=== PATIENT | female | born 1945 | race Caucasian/White ===

== ENCOUNTER → 2018-06-08 | Outpatient (CLI) | payer MEDICARE, OTHER ==
[2018-06-08 13:54] VITALS: BP 152/80; PULSE 96; RESP 18
--- NOTE | 2018-06-08 21:20 | P.PAINCN ---
History of Present Illness - Reason for Consult Consult date: 06/08/18 - History of Present Illness This is the initial consultation visit for this 72 years old female with a chronic history of severe left sided low back pain localized towards the left buttock area, she denies any initiating event and she reported that the pain started 2- 3 years ago, she was diagnosed with left sacroiliitis, she had some benefit from the left sacroiliac joint steroid injection, and the benefit lasted only for 2-3 months after each injection, she denies any motor or sensory deficit she denies any change in the bowel movement or urination, she is able to ambulate, she reported that the intensity of the pain fluctuates between a 3/10 and increases with any activity to 7-8/10, the intensity of the pain interfering with her quality of life Past Medical History Past Medical History: No Reported History History of Any Multi-Drug Resistant Organisms: None Reported Additional Past Surgical History / Comment(s): LAPAROTOMY-CYST NEAR OVARY Past Anesthesia/Blood Transfusion Reactions: No Reported Reaction Past Psychological History: No Psychological Hx Reported Smoking Status: Current every day smoker Past Alcohol Use History: Occasional Additional Past Alcohol Use History / Comment(s): STARTED SMOKING AT AGE 32 SMOKED 1/2PPD Past Drug Use History: None Reported - Past Family History Mother Family Medical History: No Reported History Medications and Allergies Home Medications Medication Instructions Recorded Confirmed Type Aspirin 81 mg PO DAILY 08/20/15 06/08/18 History Cholecalciferol [Vitamin D3] 5,000 unit PO DAILY 08/20/15 06/08/18 History Cyanocobalamin [Vitamin B-12] 1,000 mcg PO DAILY 08/20/15 06/08/18 History Allergies Allergy/AdvReac Type Severity Reaction Status Date / Time nickel Allergy Rash/Hives Verified 06/08/18 13:42 Physical Exam Vitals: Vital Signs Pulse Resp BP Pulse Ox 06/08/18 13:43 96 18 152/80 96 Intake and Output 06/08/18 06/08/18 06/08/18 06:59 14:59 22:59 Other: Weight 51.71 kg Social history : smoker , NO ETOH , NO Illegal drugs use . Review of Systems : - Constitutional : no chills , no fever , no night sweats , - Ears : no ear discharge , no change in hearing -Nose, Mouth ,Throat ; no bleeding gums, no sore throat , no epistaxis , -Cardiovascular : Denies chest pain, , no orthopnea , no palpitation -Respiratory : Denies cough , no dyspnea , no hemoptysis -Gastrointestinal :, no change in bowel habits , no coffee- ground emesis . -Genitourinary : No hematuria , no discharge , no incontinence, -Musculoskeletal : No gait dysfunction , report low back pain , - Neurological : no ataxia , no tremor , no sezure , -Psychatric , no suicidal ideation no hallucination - Endocrine : no cold intolerence , no polyuria , no polydypsia , -Hematologic : no easy bleeding , no easy brusing , -Allergic / immunology : no angioedema , no wheezing ,no allergic rhinitis -Integumentary : no brttle nails , no change hair / nails , no foot/leg ulcers . Physical Examinations : -Constitutional : Cooperative , not in acute distress . -HEENT : nech ; supple , no Lymphadenopathy , no Thyromegaly , :eyes , no icterus, no photophobia . ENT : , normal oropharynx , no Thrush - Respiratory : Chest clear to auscultations Bilaterally , no wheezing . - Cardiovascular : regular rate and rhythem , S1 , S2 , no S3 , no S4. - Gastrointestinal: abdomen soft no tenderness , no organomegally . - Genitourinary : Defferred . -Integumentary : No cellulitis , no ulcers , normal skin turgor , no cyanotic . - neurologic : Cranial nerve II to XII intact , no focal neurological deffecit -psychatric : alert , oriented X 3 , appropriate affect , intact judgment and insight . -Lymphatic : no Lymphadenopathy. - musculoskeltal: normal gait Lumber spine moter stegnth lower extremities ,thigh and legs 5/5 Right side , 5/5 Left side deep tendon reflexes : normal Knee Jerk , normal ankle Jerk lumber facet Loading Test positive on the left side and negative on the right side Range of motion of the lumbar spine Flexion 60 degrees, extension 30 degrees strait leg raising test , positive at degree Fabere test negative bilaterally mild tenderness over the sacroiliac joint on the left side Gaenslen test= negative bilaterally Seated flexion test= negative bilaterally Severe tenderness over the left iliac crest at the location of the left peroneal nerve Results Comments: MRI of the lumbar spine L3 4 foraminal narrowing ,disc bulging and facet arthropathy at L4-L5 and L5-S1 . Assessment and Plan Plan: Assessment and plan=1-left cluneal nerve neuralgia. 2-lumbar spondylosis with lumbar facet arthropathy. 3-left sacroiliitis. Clinically patient had multifactorial causes of low back pain but most of the pain currently is coming from the left cluneal neuralgia She will be good candidate to have left cluneal nerve block 2] possible to RFA of the left cluneal nerve Time with Patient: Greater than 30 PQRS Measure Charge Sheet Measure #130: Documentation of Current Meds in Medical Chart: Patient's medications documented in chart Measure #226: Tobacco Use: Screen & Cessation Intervention: Pt screened for tobacco use AND intervention given Measure #111: Pneumonia Vaccination: Pneumococcal vaccine administered or previously received Measure #47: Advance Care Plan: Advance care planning discussed & documented, pt chose/unable to give Measure #412: Opioid Treatment Agreement: No documentation of signed opioid treatment agreement Measure #408: Opioid Therapy Follow-up Evaluation: Patient had NO f/u eval minimum every 3 months during opioid therapy Measure #317: Preventitive Care & Scrn High Bld Press & F/U: Pre-hypertensive or hypertensive BP documented, pt will f/u with PCP Measure #128: Body Mass Index (BMI) Screening & Follow-up: BMI documented within normal parameters Measure #131: Pain Assessment & Follow-up: Pain positive & plan documented, Follow-up scheduled Measure #431: Unhealthy Alcohol Use Preventative Care & Scrn: Patient not identified as an unhealthy alcohol user PQRS Narrative: Smoking Status Current every day smoker Do You Want the Pneumonia Vaccine Up to Date Vaccine AT THIS TIME? Blood Pressure 152/80 Pain Intensity [Left Lower 7 Back] Scale Used Numeric (1 - 10) Hx Alcohol Use (MH) Yes: social Home Medications: Ambulatory Orders Aspirin 81 mg PO DAILY 08/20/15 Cholecalciferol [Vitamin D3] 5,000 unit PO DAILY 08/20/15 Cyanocobalamin [Vitamin B-12] 1,000 mcg PO DAILY 08/20/15
== END | disposition home or self-care (01) ==
LOC: PNWHC3 13:36
PROVIDERS: ATTEND Specialist
DX: G89.29 Other chronic pain (principal); M47.816 Spondylosis without myelopathy or radiculopathy, lumbar region; M46.1 Sacroiliitis, not elsewhere classified; M46.86 Other specified inflammatory spondylopathies, lumbar region; G58.8 Other specified mononeuropathies; F17.210 Nicotine dependence, cigarettes, uncomplicated; Z79.82 Long term (current) use of aspirin; Z79.899 Other long term (current) drug therapy; Z91.048 Other nonmedicinal substance allergy status; Z71.6 Tobacco abuse counseling
CPT/HCPCS: 99211

== ENCOUNTER 2018-06-22 08:55 | Day surgery (SDC) | payer MEDICARE, OTHER ==
[2018-06-17 14:45] VITALS: BMI 20.3
[~2018-06-22 08:55] MED LIST: LACTATED RINGERS 1,000 ML IV SCH
[2018-06-22 09:19] VITALS: RESP 16; TEMP 97.9
[2018-06-22] MEDS ORDERED: LIDOCAINE 1% 20 ML VIAL (10MG/ML) FOR IV START INTRADERMA ONE (09:25)
[2018-06-22] MEDS ORDERED: IV FLUID CONTINUATION 1,000 ML IV ONE (09:48)
--- NOTE | 2018-06-22 09:50 | P.PCN ---
Date of Procedure: 06/22/18 Procedure(s) Performed: Procedure= left cluneal nerve block with steroid injection under fluoroscopy g uidance Preoperative diagnosis=1- left cluneal nerve neuralgia 2-left sacroiliitis 3-lumbar spondylosis with facet arthropathy Postoperative diagnosis= same as they have diagnoses Complication = none Condition= stable Anesthesia= moderate sedation with intravenous Versed 1 mg , and fentanyl 50 micrograms and local infiltration with lidocaine 1% 5 mL Indication for the procedure= patient complaining of low back pain , examination was positive for severe tenderness over the left iliac crest and over the left sacroiliac joints , and patient diagnosed with left cluneal nerve neuralgia and left sacroiliitis sacroiliitis, for this reason ,she was good candidate for left cluneal nerve steroid injection. Description of the procedure= procedure risk and benefits discussed with the patient, including but not limited, risk of infection and bleeding, and ALLERGIC reaction to the medication and not complete pain relief and patient agreed with the preceding patient taken to the operating room, placed in prone position or standard monitors applied to the patient then after induction of anesthesia back prepped with chlorhexidine 3 times , Then under strict sterile technique, I did the left cluneal nerve block ,the location identified under fluoroscopy guidance been local infiltration of the skin and subcu interstitial with lidocaine 1% then 22-gauge Quincke Needle adv anced slowly under fluoroscopy and placed in the left. Iliac Crest at the location of the left cluneal nerve, placement confirmed with AP view under fluoroscopy ,and after appropriate needle placement confirmed and after negative aspiration, or heme , then Ropivacaine 0.5% 3 mL, and 40 mg of Depo-Medrol mixed together and injected , after negative aspiration patient tolerated the procedure well without any complication.
[2018-06-22 10:11] VITALS: BP 145/84; PULSE 82
--- NOTE | 2018-06-22 10:38 | FL ---
Fluoroscopy HISTORY: Pain 1 seconds fluoroscopy time supplied to the referring clinician. 1 intraoperative C-arm images docume nt the procedure. See dictated report from anesthesia.
== END 2018-06-22 10:29 | disposition home or self-care (01) ==
LOC: ORPAIN 08:55
PROVIDERS: ATTEND Specialist
DX: G58.8 Other specified mononeuropathies (principal); M47.816 Spondylosis without myelopathy or radiculopathy, lumbar region; M46.1 Sacroiliitis, not elsewhere classified; G89.29 Other chronic pain; F17.210 Nicotine dependence, cigarettes, uncomplicated; Z79.82 Long term (current) use of aspirin; Z91.048 Other nonmedicinal substance allergy status
CPT/HCPCS: 64450; J2250; J1030; J3010; 62323; 99152

== ENCOUNTER 2018-07-06 08:51 | Day surgery (SDC) | payer MEDICARE, OTHER ==
[2018-07-02 15:30] VITALS: BMI 20.2
[2018-07-06 09:13] VITALS: TEMP 98.2
--- NOTE | 2018-07-06 09:38 | P.PCN ---
Date of Procedure: 07/06/18 Description of Procedure: Preprocedure diagnosis: Cluneal nerve neuropathy Postprocedure same Procedure performed left cluneal nerve injection Anesthesia: None After consent was taken the preoperative area. All questions are answered. Patient H&P was confirmed. He was taken to procedure room and laid in the prone position. After timeout was called the back was cleansed with chlorhexidine solution. Fluoroscopy was used to get the needle to the left iliac crest. A 25-gauge 1.5 inch needle was placed at the iliac crest. After negative aspiration a solution consisting of ropivacaine 0.5% along with 40 mg of Depo-Medrol was injected in 2-3 mL increments. A total of 10 ML's was placed along the iliac crest on the left side. There is negative aspiration throughout. There is no paresthesias. Follow-up: Patient was sent to the recovery room in stable condition. Patient will be seen in the clinic in 4 weeks' time. We discussed that if the procedure continues to help her for long periods time we'll continue to repeat them as needed. If she has transient relief we will consider doing radiofrequency ablation of the left cluneal nerve.
[2018-07-06 09:43] VITALS: PULSE 66; RESP 16
[2018-07-06 09:52] VITALS: BP 171/86
--- NOTE | 2018-07-06 10:02 | FL ---
EXAMINATION TYPE: FL guided pain mgmt statistic DATE OF EXAM: 07/06/2018 HISTORY: Flouroscopy time 2 seconds of fluoroscopy provided. IMPRESSION: 1. Fluoroscopy time.
== END 2018-07-06 09:59 | disposition home or self-care (01) ==
LOC: ORPAIN 08:51
PROVIDERS: ATTEND Hospitalist
DX: G58.9 Mononeuropathy, unspecified (principal); M47.816 Spondylosis without myelopathy or radiculopathy, lumbar region; M46.1 Sacroiliitis, not elsewhere classified; F17.210 Nicotine dependence, cigarettes, uncomplicated; Z71.6 Tobacco abuse counseling; Z78.0 Asymptomatic menopausal state; Z79.82 Long term (current) use of aspirin; Z79.899 Other long term (current) drug therapy; Z91.048 Other nonmedicinal substance allergy status; Z98.890 Other specified postprocedural states
CPT/HCPCS: 64450; J1030

== ENCOUNTER → 2018-07-20 | Outpatient (CLI) | payer MEDICARE, OTHER ==
[2018-07-20 11:19] VITALS: BP 167/96; PULSE 100; RESP 18
--- NOTE | 2018-07-20 11:34 | P.PN ---
Subjective Progress Note Date: 07/20/18 Megha is a 72-year-old female presents today for follow-up. She is status post 2 left cluneal nerve injections. She reports her pain is significantly better since having the injections. She reports she is able to protect pain her family events over the last week or 2. She was able to play with grandkids. She has some minimal pain over the left side of her low back and some numbness in her buttocks. She reports that the pain is much better than it has been in the past. She still doing well since injection. She is inquiring about what she can do long-term. We discussed the radiofrequency ablation to cluneal nerve as a potential option. At this point she was a VAS is about 2 or 3 out of 10 is pretty comfortable. Denies any side effects from the injection. Denies any new radicular symptoms or new weakness. Objective - Vital Signs Vital signs: Vital Signs Temp Pulse 100 07/20/18 11:14 Resp 18 07/20/18 11:14 BP 167/96 07/20/18 11:14 Pulse Ox 98 07/20/18 11:14 Intake & Output 07/19/18 07/20/18 07/20/18 18:59 06:59 18:59 Weight 51.71 kg - Exam PHYSICAL EXAM: Constitutional: Awake and alert no distress Cardiovascular exam: Regular rate, no lower extremity edema, palpable pulses bilaterally Respiratory exam: No audible wheezing, no accessory muscle usage Abdominal exam: Soft nontender Muscular skeletal exam: - Cervical spine: Nontender to palpation bilaterally. Range of motion is not limited. Spurling is negative bilateral. Facet loading is negative bilaterally - Lumbar spine: Preserved lumbar lordosis. No changes in skin. Nontender palpation bilateral. Patient has full range of motion in flexion and extension as well as lateral sidebending. Straight leg raise is negative. Minimal tenderness over the left iliac crest. Facet loading is negative. Nontender over the SI joints. OSWALDO Negative, Gaenselons negative, SI Joint compression negative. Neuro exam: Normal sensation bilateral upper and lower extremities. Deep tendon reflexes are 2+ bilaterally. Shaffer's is negative Psychiatric exam: Cooperative, good insight Assessment and Plan Assessment: Left cluneal nerve neuropathy Plan: I discussed with her radio frequency ablation of the left cluneal nerve. I've advised her that if she still doing all from the injection we can hold off on doing at this time. She will give us a call to schedule a radiofrequency ablation one her pain begins to come back if it does at all. I've advised her to continue exercising and moving on a regular basis. Patient will follow with us as needed for the radiofrequency ablation of the left cluneal nerve
== END ==
LOC: PNWHC3 11:03
PROVIDERS: ATTEND Hospitalist
DX: G62.9 Polyneuropathy, unspecified (principal); Z98.890 Other specified postprocedural states
CPT/HCPCS: 99211

== ENCOUNTER 2018-09-20 10:04 | Day surgery (SDC) | payer MEDICARE, OTHER ==
[2018-09-16 12:02] VITALS: BMI 20.2
[2018-09-20 10:27] VITALS: TEMP 97.8
[2018-09-20 10:38] LABS: Glucose,Whole Blood 101 mg/dL (75-99)
--- NOTE | 2018-09-20 11:52 | P.PCN ---
Date of Procedure: 09/20/18 Procedure(s) Performed: Preprocedure diagnosis: Cluneal nerve neuropathy Postprocedure same Procedure performed left cluneal nerve bipolar radiofrequency ablation Anesthesia: None Fluoroscopy was used and fluoroscopic images were saved to the patient's chart. Patient was taken to the OR and time out was completed. The patient was placed in the prone position on the procedure table. The lumbar area was prepped and draped in the usual sterile fashion. . Vital signs were closely monitored during the procedure .IV sedation was used during the procedure to decrease patients anxiety. Fluoroscopy was used to visualize the left iliac crest. After localization with 1% lidocaine, 18 guage 100 radiofrequency cannula with a 10-mm active tip was advanced guided by fluoroscopy to the medial portion of the iliac crest. Needle positioning was confirmed on AP fluoroscopy. Then approximately 0.5 mL of 4% lidocaine was injected in each site. Bipolar Radiofrequency thermocoagulation at 80 degrees celsius for 90 seconds was then performed. The needles were removed and placed more laterally on the iliac crest, towords the top of the iliac crest. Again, approximately 0.5 mL of 4% lidocaine was injected in each site. Bipolar radiofrequency thermocoagulation was carried out at 80C for 90 seconds. Fiatt were removed. Sterile dressings were applied. COMPLICATIONS: No acute complications. DISPOSITION / PLANS: The patient was placed in a supine position and transferred to the recovery area in a stable condition for observation and was discharged from the recovery room after meeting discharge criteria. Home discharge instructions given to the patient by the staff. The patient will follow up in clinic in 4 weeks.
[2018-09-20] MEDS ORDERED: LACTATED RINGERS 1,000 ML IV ONE (11:53)
[2018-09-20 11:55] VITALS: RESP 16
[2018-09-20 12:10] VITALS: BP 150/95; PULSE 89
--- NOTE | 2018-09-20 17:53 | FL ---
Fluoroscopy HISTORY: Pain 12 seconds fluoroscopy time supplied to the referring clinician. 3 intraoperative C-arm images docum ent the procedure. See dictated report from anesthesia.
== END 2018-09-20 12:27 | disposition home or self-care (01) ==
LOC: ORPAIN 10:04
PROVIDERS: ATTEND Anesthesiology
DX: G62.9 Polyneuropathy, unspecified (principal); Z78.0 Asymptomatic menopausal state
CPT/HCPCS: 64640; J2250; J3301; 99152; 99153

== ENCOUNTER → 2018-10-21 | Outpatient (CLI) | payer MEDICARE, OTHER ==
[2018-10-21 11:25] VITALS: RESP 16
[2018-10-21 11:29] VITALS: BP 142/76; PULSE 99
--- NOTE | 2018-10-21 12:22 | P.PAINPG ---
Subjective Progress Note Date: 10/21/18 This is follow up visit for this 73 years old female with a chronic history of severe left sided low back pain , with radiation towards the left buttock area, she denies any initiating event and she reported that the pain started 2- 3 years ago, she was diagnosed with left sacroiliitis, and lumbar spondylosis with lumbar facet arthropathy, and left cluneal nerve neuralgia, she had short-term benefit from left sacroiliac joint steroid injection, and she had partial benefit from left cluneal nerve radiofrequency, she continued to have severe low back pain with radiation to the left buttock, she denies any motor or sensory deficit she denies any change in the bowel movement or urination, she is able to ambulate, she reported that the intensity of the pain fluctuates between a 3/10 and increases with any activity to 7-8/10, the intensity of the pain interfering with her quality of life Physical Examinations : -Constitutional : Cooperative , not in acute distress . -HEENT : nech ; supple , no Lymphadenopathy , no Thyromegaly , :eyes , no icterus, no photophobia . -Integumentary : No cellulitis , no ulcers , normal skin turgor , no cyanotic . - neurologic : Cranial nerve II to XII intact , no focal neurological deffecit -psychatric : alert , oriented X 3 , appropriate affect , intact judgment and insight . -Lymphatic : no Lymphadenopathy. - musculoskeltal: normal gait Lumber spine moter stegnth lower extremities ,thigh and legs 5/5 Right side , 5/5 Left side deep tendon reflexes : normal Knee Jerk , normal ankle Jerk lumber facet Loading Test positive on the left side and negative on the right side Range of motion of the lumbar spine Flexion 60 degrees, extension 30 degrees strait leg raising test = negative bilaterally Fabere test negative bilaterally mild tenderness over the sacroiliac joint on the left side Gaenslen test= negative bilaterally Seated flexion test= negative bilaterally tenderness over the left iliac crest at the location of the left peroneal nerve Results Comments: MRI of the lumbar spine L3 4 foraminal narrowing ,disc bulging and facet arthropathy at L4-L5 and L5-S1 . Assessment and plan=1-left cluneal nerve neuralgia. 2-lumbar spondylosis with lumbar facet arthropathy. 3-left sacroiliitis. Clinically patient had multifactorial causes , she had short-term benefits from left sacroiliac joint injection, and she had partial benefit from left cluneal nerve radiofrequency ablation, patient would be good candidate to have left side diagnostic medial branch block at L3, L4, L5, and benefits positive then we will do RFA Objective - Vital Signs Vital signs: Vital Signs Temp Pulse 99 10/21/18 11:25 Resp 16 10/21/18 11:25 BP 142/76 10/21/18 11:25 Pulse Ox 96 10/21/18 11:25 Intake & Output 10/20/18 10/21/18 10/21/18 18:59 06:59 18:59 Weight 51.71 kg PQRS Measure Charge Sheet Measure #130: Documentation of Current Meds in Medical Chart: Patient's medications documented in chart Measure #226: Tobacco Use: Screen & Cessation Intervention: Pt screened for tobacco use AND intervention given Measure #111: Pneumonia Vaccination: Pneumococcal vaccine administered or previously received Measure #47: Advance Care Plan: Advance care planning discussed & documented, pt chose/unable to give Measure #412: Opioid Treatment Agreement: No documentation of signed opioid treatment agreement Measure #408: Opioid Therapy Follow-up Evaluation: Patient had NO f/u eval minimum every 3 months during opioid therapy Measure #317: Preventitive Care & Scrn High Bld Press & F/U: Pre-hypertensive or hypertensive BP documented, pt will f/u with PCP Measure #128: Body Mass Index (BMI) Screening & Follow-up: BMI documented within normal parameters Measure #131: Pain Assessment & Follow-up: Pain positive & plan documented, Follow-up scheduled Measure #431: Unhealthy Alcohol Use Preventative Care & Scrn: Patient not identified as an unhealthy alcohol user PQRS Narrative: Smoking Status Current every day smoker Blood Pressure 142/76 Pain Intensity [Left Hip] 4 Scale Used Numeric (1 - 10) Hx Alcohol Use (MH) Yes: social Home Medications: Ambulatory Orders Aspirin 81 mg PO DAILY 08/20/15 Cholecalciferol [Vitamin D3] 5,000 unit PO DAILY 08/20/15 Cyanocobalamin [Vitamin B-12] 1,000 mcg PO DAILY 08/20/15 Naproxen Sodium [Aleve] 1 tablet PO BID PRN 10/21/18 Controlled Substance Measures - Controlled Substance Measures Is patient prescribed a controlled substance at discharge?: No
== END ==
LOC: PNWHC3 11:10
PROVIDERS: ATTEND Specialist
DX: M47.816 Spondylosis without myelopathy or radiculopathy, lumbar region (principal); M46.96 Unspecified inflammatory spondylopathy, lumbar region; M46.1 Sacroiliitis, not elsewhere classified; G58.8 Other specified mononeuropathies; F17.200 Nicotine dependence, unspecified, uncomplicated; Z79.899 Other long term (current) drug therapy; Z79.82 Long term (current) use of aspirin
CPT/HCPCS: 99211

== ENCOUNTER 2018-11-03 09:35 | Day surgery (SDC) | payer MEDICARE, OTHER ==
[2018-10-27 10:46] VITALS: BMI 19.8
[2018-11-03 10:39] VITALS: TEMP 97.9
--- NOTE | 2018-11-03 11:55 | P.PCN ---
Date of Procedure: 11/03/18 Procedure(s) Performed: PREOPERATIVE DIAGNOSIS : 1- Lumbar spondylosis with Facet Arthropathy without myelopathy . POSTOPERATIVE DIAGNOSIS: 1- Lumbar spondylosis with Facet Arthropathy without myelopathy . PROCEDURE: Diagnostic Left L3 , L4 , and L5 medial branch block under fluoroscopy guidance(fluoroscopy images available in the radiology Department ) ( to block the left facet joint at L4 -5 , and L5-S1 ) ANESTHESIA: Local with Ropivacain 0.5 % 6 ml only , EBL: Minimal COMPLICATION: None. IV FLUIDS: 100 mL of normal saline. PROCEDURE INDICATION: Chronic low back pain secondary to Facet arthropathy unresponsive to conservative treatment. PROCEDURE DESCRIPTION: the patient was seen and identified in the preop holding area , risks and benefits and possible complications of the procedure and alternative were discussed with the patient, and the patient agreed to proceed with the procedure and signed the consent IV was started and vital signs monitored during the procedure and fluoroscopy was used to maximize the benefit and accuracy of the needle placement,, patient was taken to the procedure room and placed in prone position vital signs monitored in the back prepped with chlorhexidine X3 then under strict sterile technique using a right oblique fluoroscopy ,the junction of the transverse process and the superior articulating process of the Left L3 , L4, and L5 vertebra which corresponding to the fluoroscopy image of the eye of the Ahmet dog on the block side for the medial branches and subsequently , after local infiltration of skin and subcu tissuies with Ropivacaine 0.5 % , one mL at each level ,then 25-gauge Quincke-type needles , 3 needle was used , each one of them placed at the junction of the base of the transverse process and the superior articular process at the appropriate level, and the needle was advanced until the periosteum contacted, needle placement confirmed with AP oblique and lateral view and after appropriate needle placement confirmed, and after negative aspiration for heme and CSF and there was no paresthesia 1-1/2 mL of Ropivacaine 0.5% mixed with 20 mg Depo-Medrol , then half mL injected at each level after negative aspiration the needle subsequently removed levels. At the end of the procedure and the needles removed and a bandage applied after the skin was cleaned the cleaning solution patient taken to recovery room in stable condition and monitors in the recovery room for 20-30 minutes and discharged home in stable condition after discharge criteria met and patient will follow up with the pain clinic in 2-4 weeks
[2018-11-03 12:07] VITALS: RESP 18
--- NOTE | 2018-11-03 12:18 | FL ---
EXAMINATION TYPE: FL guided pain mgmt statistic DATE OF EXAM: 11/03/2018 HISTORY: Flouroscopy time 5 seconds of fluoroscopy provided. IMPRESSION: 1. Fluoroscopy time.
[2018-11-03 12:23] VITALS: BP 113/71; PULSE 71
== END 2018-11-03 12:30 | disposition home or self-care (01) ==
LOC: ORPAIN 09:35
PROVIDERS: ATTEND Specialist
DX: G89.29 Other chronic pain (principal); M47.816 Spondylosis without myelopathy or radiculopathy, lumbar region; Z79.82 Long term (current) use of aspirin
CPT/HCPCS: 64493; 64494; J1030

== ENCOUNTER 2018-11-17 09:20 | Day surgery (SDC) | payer MEDICARE, OTHER ==
[2018-11-12 15:29] VITALS: BMI 19.5
[~2018-11-17 09:20] MED LIST changes: +BENZOCAINE SPRAY 1 CAN TOPICAL STA
[2018-11-17 09:38] VITALS: TEMP 97.7
--- NOTE | 2018-11-17 10:45 | P.PCN ---
Date of Procedure: 11/17/18 Procedure(s) Performed: PREOPERATIVE DIAGNOSIS : Lumbar spondylosis with Facet Arthropathy without myelopathy POSTOPERATIVE DIAGNOSIS: same PROCEDURE: Diagnostic lumbar medial branch block with fluoroscopy at L3, L4, L5 left side which covers facets L4-5 and L5-S1 ANESTHESIA: Local anesthetic; no IV sedation was given Fluoroscopy was used for the procedure and images were saved in the radiology portion of the chart. Surgeon: Dianna Magana MD PROCEDURE INDICATION: Lumbar back pain without radiculopathy, not responsive to conservative management. PROCEDURE DESCRIPTION: the patient was seen and identified in the preop holding area , risks and benefits and possible complications of the procedure and alternatives were discussed with the patient, and the patient agreed to proceed with the procedure and signed the consent . IV was started , vital signs were monitored during the procedure and fluoroscopy was used to maximize the benefit and accuracy of the needle placement, and sedation was given to decrease patient anxiety. Patient was taken to the procedure room and placed in prone position. The lumbar region was prepped using chlorhexidineX-2. Under strict sterile technique using AP fluoroscopy the left sacral ala were identified and using ipsilateral oblique fluoroscopy ,the junction of the transverse process and the superior articulating process of the L4, L5 vertebra which corresponds to the fluoroscopy image of the eye of the Ahmet dog for the medial branches were identified. Subsequently, after local infiltration of skin with lidocaine 1% 0.2 mL at each level , a 25-gauge 3.5" Quincke-type needle was placed at the junction of the base of the transverse process and the superior articular process at the appropriate level as well as the sacral ala, and the needle was advanced until the periosteum contacted, needle placement confirmed with AP and oblique fluoroscopy, 0.2 mL of Isovue 200 per level was injected which revealed no vascular uptake and after negative aspiration, 0.5 mL of lidocaine 4% was injected at each level and the needle subsequently removed . At the end of the procedure and the needles were removed and a bandage applied after the skin was cleaned. The patient was taken to recovery room in stable condition and monitors in the recovery room for 20-30 minutes and discharged home in stable condition after discharge criteria met and patient will follow up in clinic in 2 weeks EBL: Minimal COMPLICATION: None.
[2018-11-17 11:02] VITALS: BP 141/96; PULSE 110; RESP 16
--- NOTE | 2018-11-17 13:10 | FL ---
Fluoroscopy HISTORY: Pain 2 seconds fluoroscopy time supplied to the referring clinician. 2 intraoperative C-arm images docume nt the procedure. See dictated report from anesthesia.
== END 2018-11-17 11:30 | disposition home or self-care (01) ==
LOC: ORPAIN 09:20
PROVIDERS: ATTEND Anesthesiology
DX: M47.816 Spondylosis without myelopathy or radiculopathy, lumbar region (principal)
CPT/HCPCS: 64493; 64494; Q9966

== ENCOUNTER → 2018-11-29 | Outpatient (CLI) | payer MEDICARE, OTHER ==
[2018-11-29 13:17] VITALS: BP 146/86; PULSE 95; RESP 16
--- NOTE | 2018-12-01 16:31 | P.PAINPG ---
Subjective Progress Note Date: 11/29/18 This is a follow up visit for this 73 year old female with a chronic history of severe left sided low back pain , with radiation towards the left buttock area, she denies any initiating event and she reported that the pain started 2- 3 years ago, she was diagnosed with left sacroiliitis, and lumbar spondylosis with lumbar facet arthropathy, and left cluneal nerve neuralgia, she had short-term benefit from left sacroiliac joint steroid injection, and she had partial benefit from left cluneal nerve radiofrequency, she continued to have severe low back pain with radiation to the left buttock, she recently underwent lumbar medial branch blocks on the left side at L3, L4, L5 on 11/03/2018 and 11/18/19 19. She returns today for follow-up and reports that she experienced 98% pain relief from these procedures. She continues to experience benefit from these procedures. She would like to schedule radiofrequency ablation, however would like to delay it until December. she denies any motor or sensory deficit she denies any change in the bowel movement or urination, she is able to ambulate. Review of systems is negative for chest pain, shortness of breath, new onset weakness, numbness/tingling, abdominal pain, malaise, fever, night sweats, chills, homicidal or suicidal ideation, or bowel or bladder incontinence. Physical exam: Vitals: Reviewed in EMR GENERAL: Well appearing, in no acute distress PSYCH: Mood and affect is appropriate. Awake, alert, and oriented SKIN: Skin color, texture, turgor normal, no rashes or lesions HEENT: Normocephalic, atraumatic. EOM intact CV: No pedal edema RESP: Respirations are unlabored, no audible wheezing GI: Abdomen non-distended MUSCULOSKELETAL: Bilateral upper and lower extremity strength is normal and symmetric. No atrophy or tone abnormalities are noted. Extremities: Peripheral joint ROM is full and pain free without obvious i nstability or laxity in all four extremities. No edema or skin discolorations noted. Gait: Gait is normal NEUR: cranial nerves are grossly intact Results Comments: MRI of the lumbar spine L3 4 foraminal narrowing ,disc bulging and facet arthropathy at L4-L5 and L5-S1 . Assessment and plan=1-left cluneal nerve neuralgia. 2-lumbar spondylosis with lumbar facet arthropathy. 3-left sacroiliitis. Clinically patient had multifactorial causes , she had short-term benefits from left sacroiliac joint injection, and she had partial benefit from left cluneal nerve radiofrequency ablation, she had excellent relief from diagnostic medial branch block. She would be a good candidate for RFA at L3, L4, L5 on the left side Patient was counseled on smoking cessation for 3 minutes PQRS Measure Charge Sheet Measure #130: Documentation of Current Meds in Medical Chart: Patient's medications documented in chart Measure #226: Tobacco Use: Screen & Cessation Intervention: Pt screened for tobacco use AND intervention given Measure #111: Pneumonia Vaccination: Pneumococcal vaccine administered or previously received Measure #47: Advance Care Plan: Advance care planning discussed & documented, pt chose/unable to give Measure #412: Opioid Treatment Agreement: No documentation of signed opioid treatment agreement Measure #317: Preventitive Care & Scrn High Bld Press & F/U: Pre-hypertensive or hypertensive BP documented, pt will f/u with PCP Measure #128: Body Mass Index (BMI) Screening & Follow-up: BMI documented within normal parameters Measure #131: Pain Assessment & Follow-up: Pain positive & plan documented, Follow-up scheduled Measure #431: Unhealthy Alcohol Use Preventative Care & Scrn: Patient not identified as an unhealthy alcohol user PQRS Narrative: Smoking Status Current every day smoker Pain Intensity [Left Hip] 0 Scale Used Numeric (1 - 10) Hx Alcohol Use (MH) Yes: social Home Medications: Ambulatory Orders Aspirin 81 mg PO DAILY 08/20/15 Cholecalciferol [Vitamin D3] 5,000 unit PO DAILY 08/20/15 Cyanocobalamin [Vitamin B-12] 1,000 mcg PO DAILY 08/20/15 Naproxen Sodium [Aleve] 1 tablet PO BID PRN 10/21/18 Controlled Substance Measures - Controlled Substance Measures Is patient prescribed a controlled substance at discharge?: No
== END | disposition home or self-care (01) ==
LOC: PNWHC3 12:55
PROVIDERS: ATTEND Anesthesiology
DX: M47.816 Spondylosis without myelopathy or radiculopathy, lumbar region (principal); M46.96 Unspecified inflammatory spondylopathy, lumbar region; M46.1 Sacroiliitis, not elsewhere classified; G58.8 Other specified mononeuropathies; F17.200 Nicotine dependence, unspecified, uncomplicated; Z79.82 Long term (current) use of aspirin; Z79.1 Long term (current) use of non-steroidal anti-inflammatories (NSAID); Z79.899 Other long term (current) drug therapy
CPT/HCPCS: 99211